=== PATIENT | male | born 1980 | race Two or more races ===

== ENCOUNTER 2018-07-04 15:28 | Emergency (ER) | payer SELFPAY ==
--- NOTE | 2018-07-04 15:54 | EDM.PDOC ---
ED HPI GENERAL MEDICAL PROBLEM - General Chief Complaint: ENT Problem Stated Complaint: PAIN ON THE RT SIDE OF FACE BY EAR Time Seen by Provider: 07/04/18 15:37 - History of Present Illness INITIAL COMMENTS - FREE TEXT/NARRATIVE: HISTORY AND PHYSICAL: History of present illness: Patient is a 29-year-old male who presents with a two-week history of pain at the right side of his neck near his gland area starting just below his ear and extending underneath his jaw. He said he can eat fine and there is no distress with swallowing and he doesn't feel like food is getting stuck. He is not sure if he has a problem with one of his teeth but he has not noticed any specific tooth hurting or gum swelling. He had fever on the first 1 or 2 days of this illness but not since then he's had no runny nose sore throat ear drainage or specific in her ear pain. He has no headache or posterior neck pain. He has no cough nausea or vomiting. He was seen an outside clinic several days ago and put on prednisone and he thinks that is helping somewhat but he is still concerned. He has a follow-up appointment back at his home on Thursday. The patient has given bearing histories to triage and myself and in fact even during my interview he vacillated with location of his symptoms and associated symptoms. The patient tells me he had a rapid strep at the outside clinic that was negative Review of systems: As per history of present illness and below otherwise all systems reviewed and negative. Past medical history: As per history of present illness and as reviewed below otherwise noncontributory. Surgical history: As per history of present illness and as reviewed below otherwise noncontributory. Social history: No reported history of drug or alcohol abuse. Family history: As per history of present illness and as reviewed below otherwise noncontributory. Physical exam: General: Well-developed well-nourished overweight man who is nontoxic and vital signs are reviewed by me. He speaks clearly and easily without distress or breathlessness HEENT: Atraumatic, normocephalic, pupils reactive, negative for conjunctival pallor or scleral icterus, mucous membranes moist, throat clear, neck supple, nontender, trachea midline. No oral pharyngeal erythema or exudates, uvula is midline, there is some shoddy anterior cervical adenopathy more on the right but no posterior adenopathy or nuchal rigidity. I do not see any dental disease or gum swelling and there is no intraoral swelling appreciated or facial swelling. The TMs are dulled bilaterally without any evidence of fluid and there is no drainage or mastoid tenderness/erythema. There is no crepitus or bony deformities of the mandible and on palpation there is some mild discomfort at the mandible and underneath on the right without any discrete abnormalities or masses. Lungs: Clear to auscultation, breath sounds equal bilaterally, chest nontender. There is no wheezing or stridor Heart: S1S2, regular rhythm no overt murmurs Abdomen: Soft, nondistended, nontender. NABS Pelvis: Deferred Genitourinary: Deferred. Rectal: Deferred. Extremities: Atraumatic, negative for cords or calf pain. Neurovascular unremarkable. Neuro: Awake, alert, oriented. Cranial nerves II through XII unremarkable. Cerebellum unremarkable. Motor and sensory unremarkable throughout. Exam nonfocal. Diagnostics: [] Therapeutics: [] I discussed with the patient at length that his symptoms are very vague and he has had these symptoms for 2 weeks with some improvement. Because of the shoddy cervical adenopathy and the discomfort I told him there may be something going on with one of his teeth that I am not seeing and he will need to follow-up with a dentist. I also advised giving him a course of amoxicillin as this may help with the discomfort and the adenopathy. I also advised using candies that are sour in case this is a brewing sialoadenitis. The patient states that he has an appointment on Thursday with his provider at home and he is going to keep that. I've also discussed with him his elevated blood pressure here and as he has no chest pain shortness of breath headache neurosensory changes or renal symptomatology he needs to get that followed up as an outpatient and he states understanding Impression: Right cervical adenopathy and discomfort subacute Definitive disposition and diagnosis as appropriate pending reevaluation and review of above. right ear/throat Pain Score (Numeric/FACES): 3 - Related Data Allergies Allergy/AdvReac Type Severity Reaction Status Date / Time No Known Allergies Allergy Verified 07/04/18 15:31 Home Meds: Home Meds . [No Known Home Meds] 07/04/18 [History] Past Medical History - Past Health History Medical/Surgical History: Denies Medical/Surgical History Psychiatric History: Reports: None Social & Family History - Family History Family Medical History: Noncontributory - Tobacco Use Smoking Status *Q: Never Smoker ED ROS GENERAL - Review of Systems Review Of Systems: ROS reveals no pertinent complaints other than HPI. ED EXAM, GENERAL - Physical Exam Exam: See Below (See dictation) Course - Vital Signs Last Recorded V/S: Last Vital Signs Temp 36.6 C 07/04/18 15:31 Pulse 93 07/04/18 15:31 Resp 16 07/04/18 15:31 BP 195/109 H 07/04/18 15:31 Pulse Ox 95 07/04/18 15:31 Departure - Departure Time of Disposition: 15:54 Disposition: Home, Self-Care 01 Condition: Good Clinical Impression: Lymphadenopathy of right cervical region - Discharge Information Referrals: PCP,None [Primary Care Provider] - Additional Instructions: The following information is given to patients seen in the emergency department who are being discharged to home. This information is to outline your options for follow-up care. We provide all patients seen in our emergency department with a follow-up referral. The need for follow-up, as well as the timing and circumstances, are variable depending upon the specifics of your emergency department visit. If you don't have a primary care physician on staff, we will provide you with a referral. We always advise you to contact your personal physician following an emergency department visit to inform them of the circumstance of the visit and for follow-up with them and/or the need for any referrals to a consulting specialist. The emergency department will also refer you to a specialist when appropriate. This referral assures that you have the opportunity for followup care with a specialist. All of these measure are taken in an effort to provide you with optimal care, which includes your followup. Under all circumstances we always encourage you to contact your private physician who remains a resource for coordinating your care. When calling for followup care, please make the office aware that this follow-up is from your recent emergency room visit. If for any reason you are refused follow-up, please contact the [facility] emergency department at and ask to speak to the emergency department charge nurse. [facility] Primary care- Internal Medicine and Family [address] [address] Please keep your appointment for follow-up with your provider at home on Thursday or connect with one of our providers. Please use amoxicillin as directed until it is finished and continue and finish the prescription given as an outpatient at the clinic. Push hydration and rest and return to ER as needed and as discussed. Eat sour candy such as lemon heads or jelly ranchers to promote salivary production in case your salivary gland is becoming inflamed. When you meet with your provider on Thursday please discuss with them your blood pressure which is elevated here and be assessed for further treatment as indicated
== END 2018-07-04 16:03 | disposition home or self-care (01) ==
LOC: MW.ED 15:28
DX: R59.0 Localized enlarged lymph nodes (principal)
CPT/HCPCS: 99283